=== PATIENT | male | born 1990 | race Caucasian/White ===

== ENCOUNTER 2024-06-06 02:59 | Day surgery (SDC) | payer OTHER, SELFPAY ==
[2024-05-19 14:27] VITALS: BMI 31.1
[2024-06-06 08:21] VITALS: BP 176/90; PULSE 81; RESP 20; TEMP 36.1; O2SAT 97; BMI 29.6
[2024-06-06] MEDS: LACTATED RINGERS 1,000 ML 150 ML IV CONT (08:32)
[2024-06-06 08:45] VITALS: BP 155/85
--- NOTE | 2024-06-06 09:19 | PM.HPGS ---
History of Present Illness History of Present Illness Consent: Risks, benefits, and alternatives have been discussed and questions answered. Patient agrees to proceed with procedure. Chief complaint: dysphagia, chronic cough, Gerd Narrative: Justin Jensen is a 33 year old male with sore throat and gerd on ppi, he has seen ENT Review of Systems Review of Systems: All systems reviewed & are unremarkable except as noted in HPI and below PMFSH Family History Family History Grandparent No problems noted. Social History Social History Smoking status: Smoker, status unknown Alcohol intake: current Alcohol use details: 2 glasses bourbon daily Substance use: never Substance use type: does not use Do You Feel Safe in your Home?: Yes Lack of Transportation: No Lack of Food: Never True Current Housing: I Have Housing Concerned About Future Housing: No Difficulty Paying Gas/Electric Bills: No Difficulty Paying for Meds: No Currently Unemployed: No Education: High School Diploma/GED Difficulty w/ Childcare or Family Care: No Spiritual care concerns: No Meds Home Medications and Allergies Home Medications Medication Instructions Recorded Confirmed Type escitalopram oxalate 10 mg tablet 10 mg PO DAILY 04/01/24 06/06/24 History (Lexapro) omeprazole 40 mg capsule,delayed 40 mg PO DAILY #30 caps 04/01/24 06/06/24 Rx release testosterone enanthate 100 mg/0.5 100 mg subcut WEEKLY 04/01/24 06/06/24 History mL subcutaneous auto-injector Allergies Allergy/AdvReac Type Severity Reaction Status Date / Time No Known Allergies Allergy Mild Verified 06/06/24 08:20 Vital Signs Vital Signs - 24 hr 06/06/24 08:21 06/06/24 08:45 Temperature 97 F L Pulse Rate 81 Respiratory Rate 20 Blood Pressure 176/90 H 155/85 H Pulse Oximetry 97 Oxygen Delivery Room Air Exam Const: General: comfortable and no acute distress HENMT: Face/Nose/Sinus: Normal nares present Eyes: General: appearance normal, both eyes and all related structures Neck: Neck: no JVD Resp: Auscultation: clear to auscultation bilaterally Cardio: Rate: regular rate Rhythm: regular rhythm GI: Inspection: non-distended GI Palp: Yes Soft to palpation Skin: General skin exam: normal color Neuro: General: gait normal Speech: normal speech Extrem: General: normal to inspection Psych: Mental Status: mental status grossly normal Assessment and Plan Assessment and plan (1) GERD (gastroesophageal reflux disease): Code(s): K21.9 - Gastro-esophageal reflux disease without esophagitis Status: Acute Assessment and Plan: egd with ppi (2) Throat clearing: Code(s): R09.89 - Other specified symptoms and signs involving the circulatory and respiratory systems Status: Acute
[2024-06-06 09:29] VITALS: BP 120/65; PULSE 74; RESP 19; O2SAT 100
--- NOTE | 2024-06-06 09:37 | WPDANESEPPF ---
Anes - Initial Pre Proc Eval Procedure: Operation Date: 06/06/24 09:30 Proposed Procedures p Esophagogastroduodenoscopy - Chema Coon MD Date/Time: 06/06/24 09:37 Surgeon: Chema Coon MD Pre Op Diagnosis: dysphagia, chronic cough, Gerd Patient Data Age: 33 Gender: M Height: 1.85 m Weight: 101.9 kg Last Vital Signs Temp 97 F L 06/06/24 08:21 Pulse 74 06/06/24 09:29 Resp 19 06/06/24 09:29 BP 120/65 06/06/24 09:29 Pulse Ox 100 06/06/24 09:29 O2 Del Method Room Air 06/06/24 09:29 Allergies Allergy/AdvReac Type Severity Reaction Status Date / Time No Known Allergies Allergy Mild Verified 06/06/24 08:20 Home Medications Medication Instructions Recorded Confirmed Type escitalopram oxalate 10 mg tablet 10 mg PO DAILY 04/01/24 06/06/24 History (Lexapro) omeprazole 40 mg capsule,delayed 40 mg PO DAILY #30 caps 04/01/24 06/06/24 Rx release testosterone enanthate 100 mg/0.5 100 mg subcut WEEKLY 04/01/24 06/06/24 History mL subcutaneous auto-injector Patient hx anesthesia problems: none Family hx anesthesia problems: none Results Review: All pre-operative results and documents have been reviewed as part of the pre-operative evaluation. [facility] Family History Family History Grandparent No problems noted. Social History Social History Smoking status: Smoker, status unknown Alcohol intake: current Alcohol use details: 2 glasses bourbon daily Substance use: never Substance use type: does not use Do You Feel Safe in your Home?: Yes Lack of Transportation: No Lack of Food: Never True Current Housing: I Have Housing Concerned About Future Housing: No Difficulty Paying Gas/Electric Bills: No Difficulty Paying for Meds: No Currently Unemployed: No Education: High School Diploma/GED Difficulty w/ Childcare or Family Care: No Spiritual care concerns: No Anes - Eval Final PreProcedure Day of Procedure 06/06/24 09:37 Patient weight: normal Heart: regular rate and rhythm Lungs: clear to auscultation Airway: Mallampati scale class II Neurological: alert and oriented Last oral intake: >/= 8 hours ASA classification: II Emergent: no Anesthetic plan: proceed Anesthesia type and monitoring: general GIVS and standard monitoring Results Review: All pre-operative results and documents have been reviewed as part of the pre-operative evaluation. Informed Consent: The patient's anesthetic plan and its attendant risks and benefits were discussed with the patient/family/POA. Questions were solicited and answers provided to the satisfaction of the patient/family/POA.
[2024-06-06 09:39] VITALS: BP 112/78; PULSE 72; RESP 28; O2SAT 100
[2024-06-06 09:48] VITALS: BP 125/96; PULSE 72; RESP 17; O2SAT 100
== END 2024-06-06 10:02 | disposition home or self-care (01) ==
PROVIDERS: PCP Family Medicine; Referring Provider Nurse Practitioner; Visit Provider Internal Medicine Gastroenterology
PROC: 0DJ08ZZ Inspection of Upper Intestinal Tract, Via Natural or Artificial Opening Endoscopic (ICD-10-PCS; CPT 43235; principal; 2024-06-06 09:30)
DX: K29.50 Unspecified chronic gastritis without bleeding (principal); K21.00 Gastro-esophageal reflux disease with esophagitis, without bleeding; R09.89 Other specified symptoms and signs involving the circulatory and respiratory systems; F17.200 Nicotine dependence, unspecified, uncomplicated
CPT/HCPCS: 43239; 88305; J2003; J2704; J7120

== ENCOUNTER 2024-07-09 12:38 | Emergency (ER) | payer OTHER, SELFPAY ==
[2024-07-09 12:58] VITALS: BP 168/92; PULSE 92; RESP 14; TEMP 36.3; O2SAT 97
--- NOTE | 2024-07-09 13:29 | ED.SKABFB ---
HPI - Skin/Abscess/Foreign Bdy General Chief complaint: Skin/Abscess/Foreign Body <Reigna George PA-C - Last Filed: 07/09/24 18:25> Stated complaint: hemorrhoids <Regina George PA-C - Last Filed: 07/09/24 18:25> Time Seen by Provider: 07/09/24 13:29 <Regina George PA-C - Last Filed: 07/09/24 18:25> Focused HPI: This is a 33 year old male that presents to the ER for rectal pain. Reports previous problems with hemorrhoids. He has not been seen for this before though and doesn't have a formal diagnosis. He has tried the over the counter spray, preparation H with little relief. Reports no trouble with constipation. Denies rectal bleeding. GENERAL: Well-appearing, well-nourished, and in no acute distress. HEAD: Normocephalic, atraumatic. CHEST: Clear to auscultation. ?No respiratory distress. HEART: Regular rate and rhythm.? NEURO: ?Alert and oriented x3. Patient screened in triage and initial orders placed.? ?Additional care and disposition to be based upon?diagnostic testing and treatment. <Regina George PA-C - Last Filed: 07/09/24 18:25> History of Present Illness HPI narrative: I agree with the above HPI <Pastor Baker MD - Last Filed: 07/09/24 19:51> Related Data Home medications: Home Medications Medication Instructions Recorded Confirmed escitalopram oxalate 10 mg tablet 10 mg PO DAILY 04/01/24 06/06/24 (Lexapro) testosterone enanthate 100 mg/0.5 100 mg subcut WEEKLY 04/01/24 06/06/24 mL subcutaneous auto-injector <Regina George PA-C - Last Filed: 07/09/24 18:25> Allergies/Adverse reactions: Allergies Allergy/AdvReac Type Severity Reaction Status Date / Time No Known Allergies Allergy Mild Verified 06/06/24 08:20 <Regina George PA-C - Last Filed: 07/09/24 18:25> Review of Systems Review of Systems: CONSTITUTIONAL: Denies fever GASTROINTESTINAL: Denies abdominal pain, nausea, vomiting <Regina George PA-C - Last Filed: 07/09/24 18:25> All systems reviewed & are unremarkable except as noted in HPI and below <Regina George PA-C - Last Filed: 07/09/24 18:25> PMFSH Past Medical History Medical History: Medical History (Updated 07/09/24 @ 18:24 by Regina George PA-C) GERD (gastroesophageal reflux disease) <Regina George PA-C - Last Filed: 07/09/24 18:25> Family History Family History: Family History Grandparent No problems noted. <Regina George PA-C - Last Filed: 07/09/24 18:25> Social History Social History: Social History Smoking status: Smoker, status unknown Alcohol intake: current Alcohol use details: 2 glasses bourbon daily Substance use: never Substance use type: does not use Do You Feel Safe in your Home?: Yes Lack of Transportation: No Lack of Food: Never True Current Housing: I Have Housing Concerned About Future Housing: No Difficulty Paying Gas/Electric Bills: No Difficulty Paying for Meds: No Currently Unemployed: No Education: High School Diploma/GED Difficulty w/ Childcare or Family Care: No Spiritual care concerns: No <Regina George PA-C - Last Filed: 07/09/24 18:25> Exam Narrative: GENERAL: Well-appearing, well-nourished, and in no acute distress. HEAD: Normocephalic, atraumatic. EYES: EOMI. EXTREMITIES: Normal range of motion. No edema. SKIN: Warm, dry, no rash. NEURO: No focal deficits. Alert and oriented x3. PSYCH: Normal mood and affect <Regina George PA-C - Last Filed: 07/09/24 18:25> GENERAL: Well-appearing, well-nourished, and in no acute distress. HEAD: Normocephalic, atraumatic. EYES: EOMI. EXTREMITIES: Normal range of motion. No edema. SKIN: Warm, dry, no rash. NEURO: No focal deficits. Alert and oriented x3. PSYCH: Normal mood and affect rectal exam: Possible posterior fissure, non thrombosed hemorrhoids <Pastor Baker MD - Last Filed: 07/09/24 19:51> Course Vital Signs Vital signs: Vital Signs Temperature 97.3 F L 07/09/24 12:58 Pulse Rate 92 07/09/24 12:58 Respiratory Rate 14 07/09/24 12:58 Blood Pressure 168/92 H 07/09/24 12:58 Pulse Oximetry 97 07/09/24 12:58 Temperature 98 F 07/09/24 16:48 Pulse Rate 87 07/09/24 16:48 Respiratory Rate 18 07/09/24 16:48 Blood Pressure 149/92 H 07/09/24 16:48 Pulse Oximetry 98 07/09/24 16:48 <Regina George PA-C - Last Filed: 07/09/24 18:25> Vital Signs Temperature 97.3 F L 07/09/24 12:58 Pulse Rate 92 07/09/24 12:58 Respiratory Rate 14 07/09/24 12:58 Blood Pressure 168/92 H 07/09/24 12:58 Pulse Oximetry 97 07/09/24 12:58 Temperature 98 F 07/09/24 16:48 Pulse Rate 87 07/09/24 16:48 Respiratory Rate 18 07/09/24 16:48 Blood Pressure 149/92 H 07/09/24 16:48 Pulse Oximetry 98 07/09/24 16:48 <Pastor Baker MD - Last Filed: 07/09/24 19:51> MDM - Skin/Abscess/Foreign Bdy MDM Narrative Medical decision making narrative: 33-year-old male presenting emergency department for evaluation for rectal pain. Patient denies any rectal insertions. Patient did have frequent bowel movements on Sunday and that is when the pain started. Patient had as a suspected anal fissure posteriorly. Patient did have a non thrombosed external hemorrhoid but no internal hemorrhoids palpated. Patient was updated on the results exam and plan for treatment for home. All questions concerns were addressed. <Regina George PA-C - Last Filed: 07/09/24 18:25> 33-year-old male presenting to the emergency department for evaluation for rectal pain. Patient denies any rectal insertions. Patient did have frequent bowel movements on Sunday and that is when the pain started. Patient had as a suspected anal fissure posteriorly. Patient did have a non thrombosed external hemorrhoid but no internal hemorrhoids palpated. Patient was updated on the results exam and plan for treatment for home. All questions concerns were addressed. <Pastor Baker MD - Last Filed: 07/09/24 19:51> Differential Diagnosis Differential diagnosis: Likely other ( internal hemorrhoid, external hemorrhoid, anal fissure, rectal spasm, perianal abscess) <Pastor Baker MD - Last Filed: 07/09/24 19:51> Critical Care Time Critical Care Time Critical Care Time: No <Regina George PA-C - Last Filed: 07/09/24 18:25> Discharge Plan Discharge Clinical Impression: Anal fissure, Anal or rectal pain <Regina George PA-C - Last Filed: 07/09/24 18:25> Patient Disposition: Home, Self-Care <Regina George PA-C - Last Filed: 07/09/24 18:25> Condition: Stable <Regina George PA-C - Last Filed: 07/09/24 18:25> Instructions: Antibiotic Form, Hemorrhoids (DC), Anal Fissure (ED) <Regina George PA-C - Last Filed: 07/09/24 18:25> Additional Instructions: Increase your water intake. Start taking MiraLax to help soften your stool. Tylenol and ibuprofen for pain control. Topical wvzy-mun-hjwynhp medications such as preparation H will also be helpful. Have close follow-up with a GI physician. If you have any worsening symptoms or if you have any questions or concerns then please call or return to the emergency department. <Regina George PA-C - Last Filed: 07/09/24 18:25> Prescriptions: No Action escitalopram oxalate [Lexapro] 10 mg tablet 10 mg PO DAILY testosterone enanthate 100 mg/0.5 mL auto-injector 100 mg subcut WEEKLY omeprazole 40 mg capsule,delayed release(DR/EC) 40 mg PO DAILY Qty: 30 6RF <Regina George PA-C - Last Filed: 07/09/24 18:25> Follow-up/Referrals: Chema Coon MD [Physician] - Joseph,MD Matt [Primary Care Provider] - <Regina George PA-C - Last Filed: 07/09/24 18:25>
[2024-07-09 15:20] VITALS: BP 140/86; PULSE 80; RESP 18; TEMP 36.6; O2SAT 96
[2024-07-09 16:48] VITALS: BP 149/92; PULSE 87; RESP 18; TEMP 36.6; O2SAT 98
== END 2024-07-09 16:48 | disposition home or self-care (01) ==
PROVIDERS: Emergency Provider Emergency Medicine; PCP Family Medicine
DX: K60.2 Anal fissure, unspecified (principal); K21.9 Gastro-esophageal reflux disease without esophagitis
CPT/HCPCS: 99281

== ENCOUNTER 2024-07-13 08:59 | Emergency (ER) | payer OTHER, SELFPAY ==
--- NOTE | 2024-07-13 09:40 | PC.NURSE ---
pt left d/t wait time
== END 2024-07-13 10:21 | disposition left against medical advice (07) ==
LOC: ANHED 09:42
PROVIDERS: PCP Family Medicine
DX: K62.89 Other specified diseases of anus and rectum (principal)
CPT/HCPCS: 99199

== ENCOUNTER 2024-07-13 09:56 | Emergency (ER) | payer OTHER, SELFPAY ==
[2024-07-13 11:06] VITALS: BP 144/91; PULSE 93; RESP 16; TEMP 36.7; O2SAT 100
--- NOTE | 2024-07-13 11:13 | ED.URI ---
HPI - URI/Sore Throat General Chief Complaint: Urogenital-Male Stated Complaint: FEVER / Body chills Time Seen by Provider: 07/13/24 11:13 Source: patient, RN notes reviewed and old records reviewed Mode of arrival: ambulatory Limitations: no limitations History of Present Illness HPI Narrative: 33-year-old male presents to [facility] with complaints body aches, fever this morning. Was recently seen in the emergency room, 4 days ago was diagnosed with a fissure and hemorrhoids. Patient is having some increased rectal discomfort. Reports severe pain with bowel movements. Onset (ago): day(s) (6-7) Treatments prior to arrival: other (Preparation H, stool softeners) Related Data Home Medications Medication Instructions Recorded Confirmed testosterone enanthate 100 mg/0.5 100 mg subcut WEEKLY 04/01/24 07/13/24 mL subcutaneous auto-injector venlafaxine 37.5 mg 37.5 mg PO DAILY 07/13/24 07/13/24 capsule,extended release 24 hr Allergies Allergy/AdvReac Type Severity Reaction Status Date / Time No Known Allergies Allergy Mild Verified 07/13/24 10:57 Review of Systems Review of Systems: All systems reviewed & are unremarkable except as noted in HPI and below Constitutional: Constitutional: Reports no additional constitutional complaints ENT: Reports system reviewed and no additional complaints, except as documented Cardiovascular: Cardiovascular: Reports no additional cardiovascular complaints, Denies chest pain and Denies dyspnea Respiratory: Respiratory: Reports no additional respiratory complaints, Denies chest congestion, Denies cough and Denies dyspnea Gastrointestinal: Gastrointestinal: Reports as per HPI, Reports abdominal pain, Denies nausea, Denies vomiting and Reports other (Rectal pain) Musculoskeletal: Musculoskeletal: Reports no additional musculoskeletal complaints Integumentary/Breasts: Skin/Breast: Reports system reviewed and no additional complaints, except as docu PMFSH Past Medical History Medical History GERD (gastroesophageal reflux disease) Family History Family History Grandparent No problems noted. Social History Social History Smoking status: Smoker, status unknown Alcohol intake: current Alcohol use details: 2 glasses bourbon daily Substance use: never Substance use type: does not use Do You Feel Safe in your Home?: Yes Lack of Transportation: No Lack of Food: Never True Current Housing: I Have Housing Concerned About Future Housing: No Difficulty Paying Gas/Electric Bills: No Difficulty Paying for Meds: No Currently Unemployed: No Education: High School Diploma/GED Difficulty w/ Childcare or Family Care: No Spiritual care concerns: No Comments At the time of my signature, I reviewed and agree with the nursing past medical, surgical, social, and family history. There is no relevant family history pertinent to the patient complaint. Exam Const: General: cooperative, healthy appearing, no acute distress, well developed, alert, uncomfortable and well nourished Nutritional Appearance: well nourished Orientation/consciousness: patient oriented x3 Limitations: no limitations HENMT: Head: normal to inspection Ears: hearing grossly normal bilaterally and external ears normal Face/Nose/Sinus: Normal external nose present, normal facial exam and face symmetric Face and sinus: normal facial exam and face symmetric Eyes: General: appearance normal, both eyes and all related structures Alignment and Position: alignment normal Periorbital: periorbital findings normal Neck: Neck: normal visual inspection, full ROM, no lymphadenopathy and no meningeal signs Chest: Chest palpation & inspection: normal inspection of the chest Resp: Effort & Inspection: normal respiratory effort and able to speak in complete sentences Cardio: Rate: regular rate : Other: Deferred, sending to the ER for increased pain and fevers Skin: General skin exam: normal color and no rashes or lesions noted Lesions: no lesions Rashes: no rashes Wounds: no wounds Neuro: General: patient oriented x3, gait normal, tone normal, moves all extremities and no meningeal signs Cognition (Neuro): normal cognition Speech: normal speech Gait exam (Neuro): Normal gait present Extrem: General: normal to inspection, full ROM, capillary refill normal and normal gait Psych: Appearance: grossly normal and well kempt Mental Status: mental status grossly normal Speech and movement: Normal speech and movement present and Clear speech present Affect: normal affect Attitude: cooperative Course Course Level of Care: Express Care Visit Vital Signs Vital signs: Vital Signs Temperature 98.0 F 07/13/24 11:06 Pulse Rate 93 07/13/24 11:06 Respiratory Rate 16 07/13/24 11:06 Blood Pressure 144/91 H 07/13/24 11:06 Pulse Oximetry 100 07/13/24 11:06 Oxygen Delivery Room Air 07/13/24 11:06 Temperature 98.0 F 07/13/24 11:06 Pulse Rate 93 07/13/24 11:06 Respiratory Rate 16 07/13/24 11:06 Blood Pressure 144/91 H 07/13/24 11:06 Pulse Oximetry 100 07/13/24 11:06 Oxygen Delivery Room Air 07/13/24 11:06 Reviewed Transfer Transfered to: Other ([facility]) Transportation: Other ([facility]) Transfer rationale: Patient is reporting increased rectal pain. Excruciating pain with bowel movements. Fever of 102.8. Accepting physician: Spoke with Vianca DAVALOS, Dr. Baker MDM - URI/Sore Throat MDM Narrative Medical decision making narrative: Patient sitting up comfortably in exam room. Nontoxic, vitals stable. Patient presents with increasing pain since being evaluated. States that he did go to the ER but did not want a wait. Concerned with reported fever of 102.8, increased pain, worse with bowel movements. Discussed with patient that we are unable to do further evaluation with his concerns. Sending for higher level of care Transfer instructions reviewed with patient. Go directly to the ER. EMS was offered, patient declined All questions have been answered, and the patient deny any further questions. Some parts of this dictation were generated by voice recognition software and may contain typographical and/or grammatical inaccuracies. Differential Diagnosis Differential diagnosis: Likely other (Abscess, fissure, hemorrhoids) Critical Care Time Critical Care Time Critical Care Time: No Discharge Plan Discharge Clinical Impression: Anal or rectal pain Patient Disposition: Acute Care Hospital Condition: Stable Prescriptions: No Action venlafaxine 37.5 mg capsule,extended release 24hr 37.5 mg PO DAILY testosterone enanthate 100 mg/0.5 mL auto-injector 100 mg subcut WEEKLY omeprazole 40 mg capsule,delayed release(DR/EC) 40 mg PO DAILY Qty: 30 6RF Follow-up/Referrals: PHYSICIAN,CLINICAL INFORMATICS EDUCATOR [Primary Care Provider] -
== END 2024-07-13 11:45 | disposition short-term general hospital (02) ==
LOC: EXPTROY 10:20
PROVIDERS: Emergency Provider Nurse Practitioner
DX: K62.89 Other specified diseases of anus and rectum (principal); K21.9 Gastro-esophageal reflux disease without esophagitis
CPT/HCPCS: 99212; G0463

== ENCOUNTER 2024-09-19 02:21 | Day surgery (SDC) | payer OTHER, SELFPAY ==
[2024-09-04 14:52] VITALS: BMI 30.4
[2024-09-19 10:06] VITALS: BP 147/96; PULSE 101; RESP 20; TEMP 35.8; O2SAT 98; BMI 29.2
[2024-09-19] MEDS: LACTATED RINGERS 1,000 ML 150 ML IV CONT (10:19)
--- NOTE | 2024-09-19 10:19 | P.HP_ITS ---
History of Present Illness History of Present Illness Consent: Risks, benefits, and alternatives have been discussed and questions answered. Patient agrees to proceed with procedure. Chief complaint: specified diseases of anus and rectum Narrative: Justin Jensen is a 34 year old male with rectal pain for which had CT abdomen and pelvis showed a few prominent perirectal lymph nodes and tiny amount of prepelvic fluid. He was diagnosed with prostatitis and started on ciprofloxacin. Pain now is almost gone but never had colonoscopy. Review of Systems Review of Systems: All systems reviewed & are unremarkable except as noted in HPI and below PMFSH Past Medical History Medical History (Updated 08/05/24 @ 13:38 by Meg Hines, [facility]) GERD (gastroesophageal reflux disease) Family History Family History Grandparent No problems noted. Social History Social History Smoking status: Smoker, status unknown Alcohol intake: current Alcohol use details: 2 glasses bourbon daily Substance use: never Substance use type: does not use Do You Feel Safe in your Home?: Yes Lack of Transportation: No Lack of Food: Never True Current Housing: I Have Housing Concerned About Future Housing: No Difficulty Paying Gas/Electric Bills: No Difficulty Paying for Meds: No Currently Unemployed: No Education: High School Diploma/GED Difficulty w/ Childcare or Family Care: No Spiritual care concerns: No Meds Home Medications and Allergies Home Medications ?Medication ?Instructions ?Recorded ?Confirmed ?Type omeprazole 40 mg capsule,delayed 40 mg PO DAILY #30 caps 04/01/24 09/19/24 Rx release testosterone enanthate 100 mg/0.5 100 mg subcut WEEKLY 04/01/24 09/04/24 History mL subcutaneous auto-injector venlafaxine 37.5 mg 37.5 mg PO DAILY 07/13/24 09/19/24 History capsule,extended release 24 hr cyclobenzaprine 10 mg tablet 10 mg PO Q8H PRN muscle spasm #30 08/05/24 09/19/24 Rx tabs Allergies Allergy/AdvReac Type Severity Reaction Status Date / Time No Known Allergies Allergy Mild Verified 09/19/24 10:05 Vital Signs Vital Signs - 24 hr 09/19/24 10:06 Temperature 96.5 F L Pulse Rate 101 H Respiratory Rate 20 Blood Pressure 147/96 H Pulse Oximetry 98 Oxygen Delivery Room Air Exam Const: General: comfortable and no acute distress HENMT: Face/Nose/Sinus: Normal nares present Eyes: General: appearance normal, both eyes and all related structures Neck: Neck: no JVD Resp: Auscultation: clear to auscultation bilaterally Cardio: Rate: regular rate Rhythm: regular rhythm GI: Inspection: non-distended GI Palp: Yes Soft to palpation Skin: General skin exam: normal color Neuro: General: gait normal Speech: normal speech Extrem: General: normal to inspection Psych: Mental Status: mental status grossly normal Assessment and Plan Assessment and plan (1) Rectal pain: Code(s): K62.89 - Other specified diseases of anus and rectum Status: Acute Assessment and Plan: colonoscopy pain is almost gone
--- NOTE | 2024-09-19 10:24 | WPDANESEPPF ---
Anes - Initial Pre Proc Eval Procedure: Operation Date: 09/19/24 14:30 Proposed Procedures p Colonoscopy - Chema Coon MD Date/Time: 09/19/24 10:24 Surgeon: Chema Coon MD Pre Op Diagnosis: specified diseases of anus and rectum Patient Data Age: 34 Gender: M Height: 1.85 m Weight: 100.4 kg Last Vital Signs Temp 35.8 C L 09/19/24 10:06 Pulse 101 H 09/19/24 10:06 Resp 20 09/19/24 10:06 BP 147/96 H 09/19/24 10:06 Pulse Ox 98 09/19/24 10:06 O2 Del Method Room Air 09/19/24 10:06 Allergies Allergy/AdvReac Type Severity Reaction Status Date / Time No Known Allergies Allergy Mild Verified 09/19/24 10:05 Home Medications ?Medication ?Instructions ?Recorded ?Confirmed ?Type omeprazole 40 mg capsule,delayed 40 mg PO DAILY #30 caps 04/01/24 09/19/24 Rx release testosterone enanthate 100 mg/0.5 100 mg subcut WEEKLY 04/01/24 09/04/24 History mL subcutaneous auto-injector venlafaxine 37.5 mg 37.5 mg PO DAILY 07/13/24 09/19/24 History capsule,extended release 24 hr cyclobenzaprine 10 mg tablet 10 mg PO Q8H PRN muscle spasm #30 08/05/24 09/19/24 Rx tabs Patient hx anesthesia problems: none Family hx anesthesia problems: none Results Review: All pre-operative results and documents have been reviewed as part of the pre-operative evaluation. [facility] Past Medical History Medical History (Updated 09/19/24 @ 10:24 by Vishal Calderon DO) Anxiety GAIL (obstructive sleep apnea) GERD (gastroesophageal reflux disease) Family History Family History Grandparent No problems noted. Social History Social History Smoking status: Smoker, status unknown Alcohol intake: current Alcohol use details: 2 glasses bourbon daily Substance use: never Substance use type: does not use Do You Feel Safe in your Home?: Yes Lack of Transportation: No Lack of Food: Never True Current Housing: I Have Housing Concerned About Future Housing: No Difficulty Paying Gas/Electric Bills: No Difficulty Paying for Meds: No Currently Unemployed: No Education: High School Diploma/GED Difficulty w/ Childcare or Family Care: No Spiritual care concerns: No Anes - Eval Final PreProcedure Day of Procedure 09/19/24 10:24 Patient weight: overweight Heart: regular rate and rhythm Lungs: clear to auscultation Airway: Mallampati scale class II Neurological: alert and oriented Last oral intake: >/= 8 hours ASA classification: III Emergent: no Anesthetic plan: proceed Anesthesia type and monitoring: general GIVS and standard monitoring Results Review: All pre-operative results and documents have been reviewed as part of the pre-operative evaluation. Informed Consent: The patient's anesthetic plan and its attendant risks and benefits were discussed with the patient/family/POA. Questions were solicited and answers provided to the satisfaction of the patient/family/POA.
[2024-09-19 10:41] VITALS: BP 117/78; PULSE 85; RESP 16; O2SAT 96
[2024-09-19 10:51] VITALS: BP 113/73; PULSE 80; RESP 16; O2SAT 97
[2024-09-19 11:01] VITALS: BP 125/76; PULSE 81; RESP 20; O2SAT 96
== END 2024-09-19 11:14 | disposition home or self-care (01) ==
PROVIDERS: PCP Student in an Organized Health Care Education/Training Program; Referring Provider Nurse Practitioner; Visit Provider Internal Medicine Gastroenterology
PROC: 0DJD8ZZ Inspection of Lower Intestinal Tract, Via Natural or Artificial Opening Endoscopic (ICD-10-PCS; CPT 45378; principal; 2024-09-19 14:30)
DX: K64.8 Other hemorrhoids (principal)
CPT/HCPCS: 45378; J2003; J2704; J7120